=== PATIENT | male | born 1940 | race Caucasian/White ===

== ENCOUNTER 2022-10-18 09:14 | Observation (INO) ==
[~2022-10-18 09:14] MED LIST: Buffered Lidocaine 1% SYRIN 1 ml INTRADERM ONE; HYDROmorphone 1 MG/1 ML SYRINGE IV PRN; Lactated Ringers 1000 ml BAG 1,000 ML IV SCH; Naloxone 0.4 mg VIAL 0.4 mg/ml 1 ml VIAL IV PRN; Prochlorperazine 5 mg/ml 2 ml VIAL (10 mg) IV PRN
[2022-10-18] MEDS ORDERED: Tranexamic Acid 1 GM/100ML BAG 0 MG/0 ML BAG IV ONE (09:35)
[2022-10-18] MEDS ORDERED: ceFAZolin 2 GM PREMIX 2 GM/50 ML BAG ONE (09:35)
[2022-10-18 09:51] LABS: Rapid COVID-19 Molecular Undetected (Undetected)
[2022-10-18] MEDS ORDERED: Propofol 10 MG/ML 20 ML BTL ONE ×2 (10:55→14:08)
[2022-10-18] MEDS ORDERED: Midazolam 2 mg/2 ml VIAL 1 mg/ml 2 ml VIAL (2 mg) ONE (10:55)
[2022-10-18] MEDS ORDERED: fentaNYL 100 mcg/2 ml 50 MCG/ML VIAL ONE (10:55)
[2022-10-18] MEDS ORDERED: Morphine 2 MG/ML SYRINGE IV PRN (13:26)
[2022-10-18] MEDS ORDERED: Lactulose 30 ml UDC PO PRN (13:26)
[2022-10-18] MEDS ORDERED: Ondansetron 4 mg VIAL 2 MG/ML 2 ml VIAL IV PRN (13:26)
[2022-10-18] MEDS ORDERED: Ondansetron ODT 4 mg TAB 4 MG TAB PO PRN (13:26)
[2022-10-18] MEDS ORDERED: Magnesium Hydroxide LIQ 30 ML UDC PO PRN (13:26)
[2022-10-18] MEDS ORDERED: ROPIVACAINE 5 MG/ML 30 ML BTL (0.5%) ONE (14:37)
[2022-10-18] MEDS: Lactated Ringers 1000 ml BAG 1,000 ML IV SCH (15:55)
[2022-10-18] MEDS ORDERED: Bupivacaine-MPF SPINAL 7.5 MG/ML - 2ML AMP ONE (16:04)
[2022-10-18] MEDS: Magnesium Hydroxide LIQ 30 ML UDC PO SCH (21:26)
[2022-10-18] MEDS: ceFAZolin 1 GM ADVAN 1 GM in NS 0.9% 50 ML 50 ML IVPB SCH (21:27)
[2022-10-19] MEDS: Lactated Ringers 1000 ml BAG 1,000 ML IV SCH (01:53)
[2022-10-19] MEDS: ceFAZolin 1 GM ADVAN 1 GM in NS 0.9% 50 ML 50 ML IVPB SCH ×2 (04:36→12:59)
[2022-10-19 06:49] LABS: Hematocrit 35.6 % (38-53); Hemoglobin 12.6 g/dL (13.2-16.3); Platelet Count 157 10^3/uL (150-450)
[2022-10-19 07:10] LABS: Calcium 8.5 mg/dL (8.6-10.3); Creatinine, Serum 0.64 mg/dL (0.67-1.17); Potassium 4.1 mmol/L (3.5-5.0); eGFR CKD-EPI 95.1 (>60)
[2022-10-19] MEDS: Magnesium Hydroxide LIQ 30 ML UDC PO SCH (08:42)
[2022-10-19] MEDS ORDERED: Vitamin THERAPEUTIC TAB PO SCH (09:00)
[2022-10-19 14:13] VITALS: BP 130/70
== END 2022-10-19 17:30 | disposition home or self-care (01) ==
LOC: SSU 09:14 → OR 09:14
PROVIDERS: ADMIT Orthopaedic Surgery Adult Reconstructive Orthopaedic Surgery; ATTEND Orthopaedic Surgery Adult Reconstructive Orthopaedic Surgery

== ENCOUNTER 2023-12-21 11:31 | Observation (INO) ==
[~2023-12-21 11:31] MED LIST changes: +Acetaminophen IV 1 GM/100ML 1,000 MG/100 ML BAG IV ONE; -HYDROmorphone 1 MG/1 ML SYRINGE IV PRN; +Metoclopramide 5 MG/ML VIAL (10 mg) IV PRN; +NS 0.45% 1000 ml BAG 1,000 ML IV SCH; +Ondansetron 4 mg VIAL 2 MG/ML 2 ml VIAL IV PRN; -Prochlorperazine 5 mg/ml 2 ml VIAL (10 mg) IV PRN; +Scopolamine 1 mg/72hr PATCH TRANSDERM ONE; +fentaNYL 100 mcg/2 ml 50 MCG/ML VIAL IV PRN
[2023-12-21 12:24] LABS: Rapid COVID-19 Molecular Undetected (Undetected)
[2023-12-21] MEDS ORDERED: Tranexamic Acid 1 GM/100ML BAG 2,000 MG/200 ML BAG IV ONE (13:28)
[2023-12-21] MEDS ORDERED: ceFAZolin 2 GM PREMIX 2 GM/50 ML BAG ONE (13:28)
[2023-12-21] MEDS ORDERED: ROPIVACAINE 5 MG/ML 30 ML BTL (0.5%) ONE ×2 (13:49→14:03)
[2023-12-21] MEDS ORDERED: fentaNYL 100 mcg/2 ml 50 MCG/ML VIAL ONE (14:02)
[2023-12-21] MEDS ORDERED: Midazolam 2 mg/2 ml VIAL 1 mg/ml 2 ml VIAL (2 mg) ONE (14:03)
[2023-12-21] MEDS ORDERED: Lidocaine 2% PF 5 ML VIAL ONE ×2 (14:03→15:37)
[2023-12-21] MEDS ORDERED: Dexamethasone IV 4 MG/ML VIAL 1 ml VIAL ONE ×2 (14:03→15:37)
[2023-12-21] MEDS ORDERED: Ondansetron 4 mg VIAL 2 MG/ML 2 ml VIAL ONE (15:37)
[2023-12-21] MEDS ORDERED: Propofol 10 MG/ML 20 ML BTL ONE ×2 (16:14→16:18)
[2023-12-21] MEDS ORDERED: Calcium Carb (TUMS) 500 mg CHEW TAB PO PRN (17:38)
[2023-12-21] MEDS ORDERED: Ondansetron 4 mg VIAL 2 MG/ML 2 ml VIAL IV PRN (17:38)
[2023-12-21] MEDS ORDERED: Lactulose 30 ml UDC PO PRN (17:38)
[2023-12-21] MEDS ORDERED: Magnesium Hydroxide LIQ 30 ML UDC PO PRN (17:38)
[2023-12-21] MEDS ORDERED: Ondansetron ODT 4 mg TAB 4 MG TAB PO PRN (17:38)
[2023-12-21] MEDS: Lactated Ringers 1000 ml BAG 1,000 ML IV SCH (19:15)
[2023-12-21] MEDS: Magnesium Hydroxide LIQ 30 ML UDC PO SCH (21:17)
[2023-12-21] MEDS: Mometasone/Formoter 100/5 MDI INH SCH (23:34)
[2023-12-21] MEDS: ceFAZolin 2 GM PREMIX 2 GM/50 ML BAG IV SCH (23:35)
[2023-12-22] MEDS: Morphine 2 MG/ML SYRINGE IV PRN (03:18)
[2023-12-22 06:49] LABS: Hematocrit 36.7 % (38-53); Hemoglobin 12.6 g/dL (13.2-16.3); Mean Platelet Volume 8.4 fL (7.5-11.2); Platelet Count 173 10^3/uL (150-450)
[2023-12-22 07:09] LABS: Calcium 8.6 mg/dL (8.6-10.3); Creatinine, Serum 0.65 mg/dL (0.67-1.17); eGFR CKD-EPI 94.1 (>60)
[2023-12-22] MEDS: Vitamin THERAPEUTIC TAB PO SCH (08:24)
[2023-12-22 14:27] VITALS: BP 127/71
== END 2023-12-22 15:22 | disposition home or self-care (01) ==
LOC: OR 11:31 → SSU 11:31
PROVIDERS: ADMIT Student in an Organized Health Care Education/Training Program; ATTEND Orthopaedic Surgery Adult Reconstructive Orthopaedic Surgery